=== PATIENT | male | born 1970 ===

== ENCOUNTER 2018-07-20 07:07 | Outpatient (CLI) | payer OTHER ==
[~2018-07-20] VITALS: Ht 172.7 cm; Wt 102.1 kg
== END 2018-07-20 15:12 | disposition home or self-care (01) ==
LOC: OFIC 805 07:07
DX: R09.81 Nasal congestion (principal); H92.02 Otalgia, left ear; H66.92 Otitis media, unspecified, left ear; H60.592 Other noninfective acute otitis externa, left ear